=== PATIENT | female | born 1985 | race Hispanic/Latino ===

== ENCOUNTER 2021-01-27 08:53 | Emergency (ER) | payer BC | END 2021-01-27 09:40 | disposition home or self-care (01) | LOC: CSHERS 08:53 | DX: J06.9 Acute upper respiratory infection, unspecified (principal); Z86.16 Personal history of COVID-19; K21.9 Gastro-esophageal reflux disease without esophagitis; Z87.891 Personal history of nicotine dependence | CPT/HCPCS: 99283 ==

== ENCOUNTER 2024-10-30 14:55 | Outpatient (CLI) | payer BC | END 2024-10-30 14:56 | disposition home or self-care (01) | LOC: CSHMAMMO 14:55 | PROVIDERS: ATTEND Family Medicine | DX: Z12.31 Encounter for screening mammogram for malignant neoplasm of breast (principal) | CPT/HCPCS: 77063; 77067 ==